=== PATIENT | female | born 1945 ===

== ENCOUNTER 2017-12-19 12:39 | Outpatient (CLI) | payer MEDICARE ==
--- NOTE | 2017-12-19 15:07 | XRay Report ---
XRAY LEFT KNEE 4 THREE VIEWS: 12/19/09 CLINICAL: Left knee pain. FINDINGS: Mild osteopenia. Near complete loss of medial joint space with large medial osteophytes. Slight widening of the lateral joint space and moderate size lateral osteophytes. Small patellofemoral osteophytes. No fracture or dislocation.No joint effusion.Normal soft tissues. 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
== END 2017-12-19 12:40 | disposition home or self-care (01) ==
LOC: SPVIMAG 12:39
PROVIDERS: ATTEND Orthopaedic Surgery Sports Medicine
DX: M17.12 Unilateral primary osteoarthritis, left knee (principal); M85.862 Other specified disorders of bone density and structure, left lower leg